=== PATIENT | male | born 1970 | race Caucasian/White ===

== ENCOUNTER 2016-07-26 13:56 | Emergency (ER) | payer MEDICAID ==
[~2016-07-26] VITALS: Ht 177.8 cm; Wt 83.9 kg
[2016-07-26 14:14] VITALS: BP 121/73; PULSE 92; RESP 20; TEMP 98.2; O2SAT 98
[2016-07-26 15:30] VITALS: BP 126/78; PULSE 88; RESP 20; TEMP 98.1; O2SAT 100
== END 2016-07-26 15:30 | disposition home or self-care (01) ==
LOC: SED 13:56
DX: L03.115 Cellulitis of right lower limb (principal); S71.111D Laceration without foreign body, right thigh, subsequent encounter; W45.8XXD Other foreign body or object entering through skin, subsequent encounter
CPT/HCPCS: 99283